=== PATIENT | female | born 1980 | race Caucasian/White ===

== ENCOUNTER 2020-01-18 11:21 | Inpatient (IN) ==
[2020-01-18] MEDS ORDERED: Lactated Ringers 1000 ml BAG 1,000 ML IV ONE (12:32)
[2020-01-18] MEDS ORDERED: Lactated Ringers 1000 ml BAG 1,000 ML IV SCH (13:00)
[2020-01-18 15:55] LABS: ABS Basophils 0.1 10^3/ul (0-0.2); ABS Eosinophils 0.1 10^3/ul (0-0.6); ABS Lymphocytes 2.6 10^3/ul (1.0-4.8); ABS Monocytes 0.8 10^3/ul (0-0.8); Eosinophil % 0.8 %; Hematocrit 40 % (35-47); Hemoglobin 13.9 g/dL (12.0-16.0); Lymphocyte % 16.9 %; Mean Corpuscular HGB Conc 35 g/dL (31-36); Mean Corpuscular Hemoglobin 33 pg (27-31); Mean Corpuscular Volume 94 fL (80-97); Mean Platelet Volume 8.6 fL (7.4-10.4); Nucleated Red Blood Cells % 0.1; Platelet Count 306 10^3/uL (150-450); Red Blood Count 4.22 10^6 /uL (3.70-4.87); Red Cell Distribution Width 13 % (10-15); White Blood Count 15.3 10^3/uL (3.5-10.8)
[2020-01-18 16:36] LABS: Urine Benzodiazepine Screen None Detected (None Detect); Urine Opiates Screen None Detected (None Detect)
[2020-01-18] MEDS ORDERED: Oxytocin in LR 20 UNITS/1,000 ML BAG IVPB SCH (20:00)
[2020-01-19] MEDS ORDERED: Promethazine INJ(RESTRICTED) 25 MG/ML 1 ml VIAL IV PRN (01:04)
[2020-01-19] MEDS ORDERED: Morphine 10 MG/ML VIAL (1 ml) IV ONE (01:04)
[2020-01-19] MEDS ORDERED: Morphine PF AMP (0.5MG/ML) 5 MG/10 ML AMP ONE (14:52)
[2020-01-19] MEDS ORDERED: ceFOXitin 2 GM IVPREMIX (*) 2 GM/50 ML BAG IVPB ONE (15:00)
[2020-01-19] MEDS ORDERED: Sodium Citrate/Citric Acid LIQ 15 ML UDC ONE (15:02)
[2020-01-19] MEDS ORDERED: Ondansetron 4 mg VIAL 2 MG/ML 2 ml VIAL ONE (15:06)
[2020-01-19] MEDS ORDERED: Oxytocin 10 UNITS/ML 1 ML VIAL ONE (15:06)
[2020-01-19] MEDS ORDERED: Dexamethasone IV 4 MG/ML VIAL 1 ml VIAL ONE (15:06)
[2020-01-19] MEDS ORDERED: EPHEDrine (Pressors) 50 MG/ML VIAL ONE (15:26)
[2020-01-19] MEDS ORDERED: Sodium Citrate/Citric Acid LIQ 15 ML UDC PO ONE (15:43)
[2020-01-19] MEDS ORDERED: Prochlorperazine 5 mg/ml 2 ml VIAL (10 mg) IV PRN ×2 (15:44→15:48)
[2020-01-19] MEDS ORDERED: fentaNYL 100 mcg/2 ml 50 MCG/ML VIAL IV PRN (15:44)
[2020-01-19] MEDS ORDERED: Acetaminophen IV 1 GM/100ML 1,000 MG/100 ML VIAL IVPB ONE (15:44)
[2020-01-19] MEDS ORDERED: Naloxone 0.4 mg VIAL 0.4 mg/ml 1 ml VIAL IV PRN ×2 (15:44→15:48)
[2020-01-19] MEDS ORDERED: Ondansetron 4 mg VIAL 2 MG/ML 2 ml VIAL IV PRN (15:48)
[2020-01-19] MEDS ORDERED: diPHENhydraMINE IV 50 MG/ML 1 ml VIAL (BENADRYL) IV PRN (15:48)
[2020-01-19] MEDS ORDERED: Witch Hazel PAD JAR TOPICAL PRN (16:27)
[2020-01-19] MEDS ORDERED: Dibucaine 1% OINT 28.35 GM TUBE PR PRN (16:27)
[2020-01-19] MEDS ORDERED: Glycerin ADULT 2.4 gm SUPP PR PRN (16:27)
[2020-01-19] MEDS ORDERED: Lactated Ringers 1000 ml BAG 1,000 ML IV SCH (17:00)
[2020-01-20] MEDS ORDERED: Ammonia Inhalant 1 EA AMP ONE (00:06)
[2020-01-20 07:49] LABS: ABS Lymphocytes 1.8 10^3/ul (1.0-4.8); Hematocrit 35 % (35-47); Hemoglobin 12.1 g/dL (12.0-16.0); Lymphocyte % 8.6 %; Mean Corpuscular HGB Conc 35 g/dL (31-36); Mean Corpuscular Hemoglobin 33 pg (27-31); Mean Corpuscular Volume 94 fL (80-97); Mean Platelet Volume 8.1 fL (7.4-10.4); Platelet Count 294 10^3/uL (150-450); Red Blood Count 3.71 10^6 /uL (3.70-4.87); Red Cell Distribution Width 13 % (10-15); White Blood Count 20.9 10^3/uL (3.5-10.8)
[2020-01-21 07:23] VITALS: BP 105/68
[2020-01-22] MEDS ORDERED: Scopolamine PATCH Remove NOTE PATCH OFF SCH (15:48)
== END 2020-01-21 10:29 | disposition home or self-care (01) | DRG 540 ==
LOC: MCHOBOUT 11:21 → MCHOB 12:36
PROVIDERS: ADMIT Midwife; ATTEND Midwife